=== PATIENT | male | born 1955 | race Caucasian/White ===

== ENCOUNTER 2016-12-27 10:43 | Emergency (ER) | payer OTHER ==
[2016-12-27 10:48] VITALS: BMI 25.0
[2016-12-27 10:50] VITALS: BP 140/95; PULSE 81; RESP 20; TEMP 98.5
--- NOTE | 2016-12-27 11:21 | ED PDOC ---
HPI: Allergic Reaction Time Seen by Provider: 12/27/16 11:03 Chief Complaint (Nursing): Allergic Reaction Past Medical History Vital Signs: Last Vital Signs Temp 98.5 F 12/27/16 10:48 Pulse 81 12/27/16 10:48 Resp 20 12/27/16 10:48 BP 140/95 H 12/27/16 10:48 Pulse Ox 98 12/27/16 11:06 - Family History Family History: States: Unknown Family Hx - Home Medications Home Medications: Ambulatory Orders Medication Instructions Recorded Fexofenadine HCl [MilenaNf] 1 tab PO DAILY #15 tab 12/27/16 Fluticasone Propionate [Flonase] 2 spr ERLIN DAILY #1 bottle 12/27/16 Montelukast [Singulair] 1 tab PO DAILY #15 tab 12/27/16 Prednisone [Deltasone] 1 tab PO BID #10 tablet 12/27/16 - Allergies Allergies/Adverse Reactions: Allergies Allergy/AdvReac Type Severity Reaction Status Date / Time No Known Allergies Allergy Verified 04/01/16 11:29 - ECG O2 Sat by Pulse Oximetry: 98 Disposition - Clinical Impression Clinical Impression: Allergic reaction, Allergic rhinitis - Patient ED Disposition Is Patient to be Admitted: No - Disposition Referrals: [facility] [Outside] Disposition: Routine/Home Disposition Time: 11:19 Condition: STABLE Additional Instructions: Mr. Vidal, thank you for letting us take care of you today. Return to the ER if your symptoms worsen, or if any problems. Take the medication(s) listed below as prescribed. We want to make sure that you are getting better. Please call the phone number listed below to make a follow up appointment at our [facility]. Prescriptions: Fexofenadine HCl [MilenaNf] 1 tab PO DAILY #15 tab Fluticasone Propionate [Flonase] 2 spr ERLIN DAILY #1 bottle Montelukast [Singulair] 1 tab PO DAILY #15 tab Prednisone [Deltasone] 1 tab PO BID #10 tablet Instructions: Allergies (ED), General Allergic Reaction (ED) Forms: [employer] (Setswana) Print Language: ITALIAN - POA Present On Arrival: None
[2016-12-27 11:28] VITALS: O2SAT 98
== END 2016-12-27 12:02 | disposition home or self-care (01) ==
LOC: H.ER 10:43
DX: T78.40XA Allergy, unspecified, initial encounter (principal)